=== PATIENT | female | born 2000 | race Caucasian/White ===

== ENCOUNTER → 2018-04-01 02:38 | Emergency (ER) | payer SELFPAY ==
[~2018-04-01 02:38] MED LIST: Famotidine TAB* 20 MG PO ONE; predniSONE TAB* 20 MG PO ONE
--- NOTE | 2018-04-01 03:25 | ED ---
Allergic Reaction/Systemic - HPI Summary HPI Summary: This patient is a 17 year old F presenting to [facility] with a c/o a possible allergic reaction. Pt states she spilled Elmers glue on her left hand at 0200 and then experienced throat tightening and lightheadedness. The patient rates the pain 0/10 in severity. Symptoms alleviated by Benadryl 50mg. Patient reports mild itching on the site where the glue touched her. - History of Current Complaint Chief Complaint: EDGeneral Hx Obtained From: Patient Onset/Duration: Still Present Timing: Constant Severity Initially: Moderate Severity Currently: Mild Pain Intensity: 0 Pain Scale Used: 0-10 Numeric Character: Swelling Associated Signs And Symptoms: Positive: Lightheadedness, Throat Tightening - Allergies/Home Medications Allergies/Adverse Reactions: Allergies Allergy/AdvReac Type Severity Reaction Status Date / Time quetiapine [From Seroquel] Allergy Unknown Verified 04/01/18 02:50 Reaction Details Home Medications: Home Medications Vyvanse 50 mg PO DAILY 04/01/18 [History Confirmed 04/01/18] PMH/Surg Hx/FS Hx/Imm Hx Endocrine/Hematology History: Denies: Hx Diabetes, Hx Systemic Lupus Erythematosus, Hx Unexplained Bleeding Cardiovascular History: Denies: Hx Cardiomegaly, Hx Congenital Heart Disease, Hx Coronary Artery Disease, Hx Deep Vein Thrombosis Respiratory History: Reports: Hx Seasonal Allergies Denies: Hx Pneumonia Psychiatric History: Reports: Hx Attention Deficit Hyperactivity Disorder Infectious Disease History: No Infectious Disease History: Denies: Traveled Outside the [place] in Last 30 Days - Family History Known Family History: Positive: Other - anaphylaxis Negative: Hypertension - Social History Lives: With Family Alcohol Use: None Hx Substance Use: No Substance Use Type: Reports: None Hx Tobacco Use: No Smoking Status (MU): Never Smoked Tobacco Review of Systems Negative: Fever Positive: Other - throat tightening Positive: Other - itching Neurological: Other - light headedness All Other Systems Reviewed And Are Negative: Yes Physical Exam - Summary Physical Exam Summary: VITAL SIGNS: Reviewed. GENERAL: Patient is a well-developed and nourished female who is lying comfortable in the stretcher. Patient is not in any acute respiratory distress. HEAD AND FACE: No signs of trauma. No ecchymosis, hematomas or skull depressions. No sinus tenderness. EYES: PERRLA, EOMI x 2, No injected conjunctiva, no nystagmus. EARS: Hearing grossly intact. Ear canals and tympanic membranes are within normal limits. MOUTH: Oropharynx within normal limits. NECK: Supple, trachea is midline, no adenopathy, no JVD, no carotid bruit, no c- spine tenderness, neck with full ROM. CHEST: Symmetric, no tenderness at palpation LUNGS: Clear to auscultation bilaterally. No wheezing or crackles. CVS: Regular rate and rhythm, S1 and S2 present, no murmurs or gallops appreciated. ABDOMEN: Soft, non-tender. No signs of distention. No rebound no guarding, and no masses palpated. Bowel sounds are normal. EXTREMITIES: FROM in all major joints, no edema, no cyanosis or clubbing. NEURO: Alert and oriented x 3. No acute neurological deficits. Speech is normal and follows commands. SKIN: Dry and warm Triage Information Reviewed: Yes Vital Signs On Initial Exam: Initial Vitals Temp Pulse Resp BP Pulse Ox 98.0 F 98 20 122/73 100 04/01/18 02:45 04/01/18 02:45 04/01/18 02:45 04/01/18 02:45 04/01/18 02:45 Vital Signs Reviewed: Yes Diagnostics - Vital Signs Vital Signs Temp Pulse Resp BP Pulse Ox 04/01/18 02:45 98.0 F 98 20 122/73 100 - Laboratory Lab Statement: Any lab studies that have been ordered have been reviewed, and results considered in the medical decision making process. Allergic Reaction Course/Dx - Course Assessment/Plan: This patient is a 17 year old F presenting to [facility] with a c/o a possible allergic reaction. Pt states she spilled Elmers glue on her left hand at 0200 and then experienced throat tightening and lightheadedness. The patient rates the pain 0/10 in severity. Symptoms alleviated by Benadryl 50mg. Patient reports mild itching on the site where the glue touched her. . In the ED course the patient was given pepcid and deltasone. Pts sx improved with these medications. Patient will be discharged with prescription for prednisone and follow up from PCP. The patient is agreeable with this plan. - Diagnoses Provider Diagnoses: Allergic reaction Discharge - Sign-Out/Discharge Documenting (check all that apply): Patient Departure - Discharge Plan Condition: Stable Disposition: HOME Prescriptions: predniSONE [Prednisone 20 MG TAB] 40 mg PO DAILY #6 tablet Patient Education Materials: Anaphylaxis (ED) Referrals: [facility] [place] [facility] [Outside] Additional Instructions: Follow up with your primary care physician in 1-3 days. RETURN TO THE EMERGENCY DEPARTMENT FOR CHANGING OR WORSENING SYMPTOMS. - Attestation Statements Document Initiated by Scribe: Yes Documenting Scribe: Lincoln Guajardo Provider For Whom Scribe is Documenting (Include Credential): Sandra Burch MD Scribe Attestation: ILincoln , scribed for Sandra Burch MD on 04/01/18 at 0431. Status of Scribe Document: Ready
[2018-04-01 04:39] VITALS: BP 128/76
== END | disposition home or self-care (01) ==
LOC: ED 02:38
DX: T78.40XA Allergy, unspecified, initial encounter (principal); X58.XXXA Exposure to other specified factors, initial encounter; Y92.9 Unspecified place or not applicable
CPT/HCPCS: 99282; A9270-GY; J7512